=== PATIENT | female | born 1965 | race Caucasian/White ===

== ENCOUNTER → 2022-12-16 | Outpatient (CLI) | payer OTHER ==
--- NOTE | 2022-12-16 06:31 | MR ---
EXAMINATION TYPE: MR knee LT wo con DATE OF EXAM: 12/16/2022 COMPARISON: NONE at this institution HISTORY: Lt knee pain and swelling with locking after injury walking down steps. Internal arrangement , primary osteoarthritis, possible torn meniscus all per order. TECHNIQUE: Multiplanar, multisequence images of the knee is performed without IV contrast. FINDINGS: MEDIAL MENISCUS: Medial extrusion of medial meniscus with horizontal increased signal does not defini tively extend to articular surface. LATERAL MENISCUS: Anterior and posterior horns are intact without tear. CRUCIATE LIGAMENTS: The anterior and posterior cruciate ligaments are intact and unremarkable. COLLATERAL LIGAMENTS: The medial collateral ligament and lateral collateral ligament complex are inta ct. Marked fluid signal surrounds the medial collateral ligament especially along the distal fibers. EXTENSOR MECHANISM: Visualized quadriceps and patellar tendons are intact. EFFUSION: Moderate to large size suprapatellar joint effusion. POPLITEAL CYST: Tiny popliteal/stoll cyst axial image 14. TRICOMPARTMENT SPACES: [id number] tricompartment joint space loss with mild tricompartment spur ring. CARTILAGE: Some early chondromalacia patella with cartilaginous loss posterior patellar pole referenc e sagittal image 18. Cartilaginous loss medial tibial femoral compartment. BONE MARROW SIGNAL: Areas of heterogeneous increased T2 signal throughout the medial tibial plateau a nd medial proximal tibial metaphysis. No linear T1 signal to suggest fracture. Subchondral cystic bonifacio nge more centrally involving tibial condyles. More mild increased T2 signal or edema medial aspect of the distal medial femoral condyle. OTHER: No additional significant abnormality is appreciated. IMPRESSION: 1. Tricompartment degenerative changes that are at least moderate involving patellofemoral and medial tibiofemoral compartments. 2. Moderate to large-sized suprapatellar joint effusion. 3. At least intrasubstance tear medial meniscus. No definitive full-thickness meniscal tear. 4. Moderate to severe sprain injury of the MCL without tear. 5. Focal osseous contusion injury involving the medial aspect of the proximal tibia. 6. Tiny poplitea l cyst.
== END | disposition home or self-care (01) ==
LOC: RADMRIMAIN 05:45
PROVIDERS: ATTEND Orthopaedic Surgery
DX: S80.02XA Contusion of left knee, initial encounter (principal); S83.412A Sprain of medial collateral ligament of left knee, initial encounter; S83.242A Other tear of medial meniscus, current injury, left knee, initial encounter; M23.8X2 Other internal derangements of left knee; M17.12 Unilateral primary osteoarthritis, left knee; M25.462 Effusion, left knee; M71.22 Synovial cyst of popliteal space [Baker], left knee; F17.210 Nicotine dependence, cigarettes, uncomplicated; X58.XXXA Exposure to other specified factors, initial encounter